=== PATIENT | female | born 1955 | race Caucasian/White ===

== ENCOUNTER 2019-01-03 20:52 | Emergency (ER) | payer OTHER ==
[~2019-01-03] VITALS: Ht 165.1 cm; Wt 67.1 kg
[2019-01-03] MEDS ORDERED: LIPITOR40 MG (22:15)
== END 2019-01-03 23:31 | disposition home or self-care (01) ==
LOC: ER 20:52
DX: H11.31 Conjunctival hemorrhage, right eye (principal)

== ENCOUNTER 2020-12-16 15:24 | Emergency (ER) | payer OTHER ==
[~2020-12-16] VITALS: Ht 167.6 cm; Wt 65.8 kg
[~2020-12-16 15:24] MED LIST: LIPITOR40 MG
[2020-12-16] MEDS ORDERED: PROTONIX40 MG PO (21:57)
== END 2020-12-16 22:16 | disposition home or self-care (01) ==
LOC: ER 15:24
DX: K29.70 Gastritis, unspecified, without bleeding (principal); K80.80 Other cholelithiasis without obstruction; R10.13 Epigastric pain; R10.31 Right lower quadrant pain